=== PATIENT | male | born 1930 | race Caucasian/White ===

== ENCOUNTER 2016-11-16 15:11 | Inpatient (IN) ==
[2016-11-16] MEDS ORDERED: ASPIRIN PO STA (15:19)
[2016-11-16] MEDS ORDERED: LOPRESSOR IV ONE (15:21)
--- NOTE | 2016-11-16 15:46 | EKG Report ---
Test Performed on : 11/16/2016 3:28:05 PM Test Reason : Chest Pain Blood Pressure : / mmHG Vent. Rate : 113 BPM Atrial Rate : 087 BPM P-R Int : 000 ms QRS Dur : 100 ms QT Int : 342 ms P-R-T Axes : 000 235 115 degrees QTc Int : 469 ms Atrial fibrillation. with rapid ventricular response. Right superior axis deviation Pulmonary disease pattern Nonspecific ST abnormality Abnormal ECG No previous ECGs available Unconfirmed Result
[2016-11-16 15:47] LABS: BASO% 0.1 % (0.0-0.8); HEMATOCRIT 43.9 % (42.0-52.0); HEMOGLOBIN 13.9 g/dL (14.0-18.0); IMM GRAN# 0.08 X1000 (0.0-0.04); IMM GRAN% 0.5 % (0.0-0.5); LYMPH# 1.66 X1000 (1.2-3.4); LYMPH% 11.4 % (20.5-51.1); MANUAL DIFF NEEDED? NO; MCH 27.1 PG (27-31); MCHC 31.7 g/dL (33-37); MCV 85.7 FL (81-99); MONO# 1.87 X1000 (0.11-0.59); MONO% 12.8 % (1.7-9.3); MPV 11.5 FL (7.4-10.4); NEUT% 75.2 % (42.2-75.2); PLT 106 X1000 (130-400); RBC 5.12 XMIL (4.7-6.1)
[2016-11-16 15:50] LABS: INR 1.44; PROTIME 15.5 Seconds (9.2-11.7)
[2016-11-16 15:51] LABS: PTT 48.8 Seconds (22.0-36.0)
--- NOTE | 2016-11-16 15:54 | ED EKG INTERP ---
This chart was entered by Kyle Acevedo Scribe, acting as scribe for Katy Kapadia MD. EKG Interpretation - EKG Time of EKG reading by physician:: 15:39 EKG Read and Signed by:: Katy Kapadia EKG Interpretation (*Must complete 3 of following elements*): Abnormal Rate: 113 Rhythm: a fib with rapid ventricular response [place]: right Comments: pulmonary disease pattern, non specific ST abnormality This chart was documented by the indicated scribe, (Kyle Acevedo Scribe) and accurately reflects the services I performed and decisions made by me, Katy Kapadia MD, as attested by the provider's signature.
[2016-11-16 16:02] LABS: ALBUMIN 4.5 g/dL (3.5-5.0); CALCIUM 9.4 mg/dL (8.8-10.2); MAGNESIUM 2.2 mg/dL (1.5-2.7); TOTAL BILIRUBIN 2.54 mg/dL (0.20-1.00)
--- NOTE | 2016-11-16 16:10 | Diag Imaging Result Doc PS360 ---
EXAM: CHEST-PORTABLE - 11/16/2016 HISTORY: sob/cp TECHNIQUE: Portable chest 4:05 PM COMPARISON: 06/07/2015 FINDINGS: Heart size is within normal limits. There are apparent emphysematous changes of the upper lobes, is prominent on the right. There is infiltrate with some atelectasis at the right base. There is mild prominence of central markings on the left. There is no substantial pleural effusion or pneumothorax identified. IMPRESSION: Some emphysematous changes. Findings which may relate to right basilar pneumonia and/or mild pulmonary edema. Electronically signed by Andre Carreno 11/16/2016 4:08 PM
[2016-11-16] MEDS ORDERED: LASIX IV ONE ×2 (17:23→19:12)
[2016-11-16] MEDS ORDERED: NS 1,000 ML IV ONE (17:26)
[2016-11-16] MEDS ORDERED: TORADOL IV PRN (17:26)
[2016-11-16] MEDS ORDERED: ZOFRAN IV PRN (17:28)
[2016-11-16] MEDS ORDERED: TYLENOL PO PRN (17:28)
[2016-11-16] MEDS: SOLU-MEDROL IV SCH (19:57)
[2016-11-16] MEDS: KLOR-CON PO SCH ×2 (19:57→20:08)
[2016-11-16] MEDS: ROCEPHIN 1 GM/NS 1 GM/50 ML IVPB IV SCH (19:57)
[2016-11-16] MEDS: PROTONIX IV SCH (19:57)
[2016-11-16] MEDS: NS 1,000 ML IV SCH (19:58)
[2016-11-16] MEDS ORDERED: MORPHINE IV PRN (20:35)
--- NOTE | 2016-11-16 21:02 | HISTORY AND PHYSICAL ---
CHIEF COMPLAINT: Shortness of breath. HISTORY OF PRESENT ILLNESS: Mr. Meneses is an 86-year-old white gentleman, patient of Dr. Guzman, came to the ER because of shortness of breath. The patient is a vague and poor historian. History gotten from patient and his daughter. According to patient, he was not doing well since this morning. The patient had increasing cough, chest congestion, shortness of breath. The patient claims he was feeling weak. His legs were feeling rubbery. He did have some chills, questionable fever. The patient does have underlying COPD, atrial fibrillation, on medication. Daughter called the ambulance. The patient was brought to the emergency room. Evaluated by ER physician. Patient found to be in atrial fibrillation with rapid ventricular response. Also found to have uncompensated congestive heart failure. The patient received IV Lasix with partial improvement and they decided to admit the patient for further care. The patient did have increasing cough and chest congestion. When I evaluated the patient he was feeling feverish. The patient was getting weak. The patient denied any headache. He did have a runny nose, stuffy nose. No sore throat. Denied any hemoptysis. No pleuritic-type of chest pain. Denied abdominal pain, nausea, vomiting. No diarrhea, blood or mucus in the stool. Does have polyuria and polydipsia. No dysuria or hematuria. Minimal leg swelling. The patient does have arthritic pain in both knees. The patient claims he does have much more problem in the right leg compared to the left. No further history available at this time. The patient was feeling weak, tired, and no energy. No further history available at this time. ALLERGIES: No known drug allergy. PAST MEDICAL HISTORY: Significant for COPD, atrial fibrillation, congestive heart failure, osteoarthritis. Patient had bilateral knee replacement done. History of BPH and TURP. Patient had nephrectomy done, melanoma on the left arm and excision done in the past. The patient had amputation of the great toe. History of gout, hearing impairment, osteoarthritis, atrial fibrillation, superficial bladder cancer, hypertension, hiatal hernia. SOCIAL HISTORY: Patient is single. Lives in [place]. Nonsmoker. Denied alcohol or substance abuse. Not working currently. Needs minimal assistance in activities of daily living. FAMILY HISTORY: Significant for, his of lung cancer. REVIEW OF SYSTEMS: As per HPI. PHYSICAL EXAMINATION: GENERAL: Elderly white gentleman, in mild distress. VITAL SIGNS: Blood pressure 133/70, pulse 117 and irregularly irregular, temperature 99.2 degrees, respiration 18. SKIN: Senile turgor. No rash or petechiae. HEENT: Head atraumatic, normocephalic. [place] conjunctivae. Anicteric sclerae. Extraocular muscle movement normal. Fundus cannot be penetrated. Good oral hygiene. No tonsillopharyngeal congestion or exudate. Ears and nose benign. NECK: Supple. No JVD, thyromegaly, or lymphadenopathy. CHEST: Bilateral good air entry present. Bibasilar crepitation. Occasional wheezing. CARDIOVASCULAR: S1 and S2. Irregularly irregular. There is 2/6 systolic murmur at the apex. No gallop or thrill. ABDOMEN: Soft, globular. Bowel sounds present. No organomegaly or mass. EXTREMITIES: No cyanosis, clubbing. No acute DVT. Scar of previous surgery well healed on both knees. FULL TIME STAFF INTERPRETER: Alert, awake. Answering questions fairly well. Hard of hearing. No acute vascular compromise. LABORATORY DATA: Revealed WBC count 14.56, hemoglobin 13.9, hematocrit 43.9, platelet count 106,000. PT/INR 1.44, PTT 48.8. Patient does have left shift. Electrolytes: BUN 23, creatinine 1.6. ProBNP was 2,979. Total bilirubin was 2.54. CONSIDERATION: Patient admitted with chest congestion, cough, wheezing, shortness of breath. It is multifactorial. Chronic obstructive pulmonary disease exacerbation. The patient does have chest x-ray showing possible pneumonia. The patient also has atrial fibrillation with rapid ventricular response, mild congestive heart failure. He has other problem includes osteoarthritis, hypertension, atrial fibrillation. I entertained the possibility of chronic obstructive pulmonary disease exacerbation. The patient has only 1 kidney. I am going to stop anti-inflammatory medications. PLAN: Admit the patient. IV Lasix. GI prophylaxis. Patient is already on Xarelto. IV antibiotics. Pulmonary toilet. Small dose of steroid. Fall precaution. P.r.n. catheter. Repeat blood work in the morning. Overall plan discussed with patient and family. They are in agreement. cc: MD Isaiah Cervantes MD
--- NOTE | 2016-11-17 05:25 | EKG Report ---
Test Performed on : 11/16/2016 4:34:38 PM Test Reason : No Order in [facility] Blood Pressure : / mmHG Vent. Rate : 102 BPM Atrial Rate : 091 BPM P-R Int : 000 ms QRS Dur : 100 ms QT Int : 336 ms P-R-T Axes : 000 -46 047 degrees QTc Int : 437 ms Atrial fibrillation. with rapid ventricular response. with premature ventricular or aberrantly condu cted complexes. Left axis deviation Nonspecific ST abnormality Abnormal ECG When compared with ECG of 16-NOV-2016 16:34, (Unconfirmed) Criteria for Septal infarct are no longer present Unconfirmed Result
[2016-11-17 05:28] LABS: CALCIUM 9.4 mg/dL (8.8-10.2); MAGNESIUM 2.3 mg/dL (1.5-2.7); POTASSIUM 4.2 mmol/L (3.5-5.1); TOTAL BILIRUBIN 2.47 mg/dL (0.20-1.00); TOTAL PROTEIN 7.3 g/dL (6.3-8.3)
[2016-11-17 06:03] LABS: BASO% 0.1 % (0.0-0.8); HEMATOCRIT 41.4 % (42.0-52.0); HEMOGLOBIN 13.2 g/dL (14.0-18.0); IMM GRAN# 0.04 X1000 (0.0-0.04); IMM GRAN% 0.5 % (0.0-0.5); LYMPH# 0.37 X1000 (1.2-3.4); LYMPH% 4.2 % (20.5-51.1); MANUAL DIFF NEEDED? NO; MCHC 31.9 g/dL (33-37); MCV 84.7 FL (81-99); MONO# 0.81 X1000 (0.11-0.59); MONO% 9.1 % (1.7-9.3); MPV 12.1 FL (7.4-10.4); NEUT% 86.1 % (42.2-75.2); PLT 100 X1000 (130-400); RBC 4.89 XMIL (4.7-6.1)
[2016-11-17] MEDS: SOLU-MEDROL IV SCH ×2 (06:35→20:20)
[2016-11-17] MEDS: LINZESS PO SCH ×2 (06:40→09:05)
[2016-11-17] MEDS: VITAMIN D PO SCH (08:25)
[2016-11-17] MEDS: LOPRESSOR PO SCH (08:25)
[2016-11-17] MEDS: XARELTO PO SCH (08:28)
[2016-11-17] MEDS: DUONEB (A & A) INH PRN (15:07)
[2016-11-17] MEDS: BREO ELLIPTA 200/25 MCG INH INH SCH (15:08)
--- NOTE | 2016-11-17 18:17 | PROGRESS NOTE ---
DATE: 11/17/2016 LEVEL 3 DOCUMENTATION: Patient was admitted yesterday by Dr. Aguilar for shortness of breath. The patient was found to have atrial fibrillation and mild CHF. He also had a COPD treating for both. This morning he is doing very well. Denies of any chest pain, improved shortness of breath. No PND. No orthopnea. No swelling of feet. The rest of the review of systems none reported. PAST MEDICAL HISTORY/PAST SURGICAL HISTORY/MEDICINES: Reviewed. OBJECTIVE: Vital signs: On examination afebrile, slightly tachycardic, blood pressure is 129/79, 99 pulse oximetry on 2 L. I's and O's are negative 500 mL. General: The patient does not appear to be in respiratory distress. HEENT: Exam within normal limits. Neck: Supple. No lymphadenopathy. Chest: Bilateral air entry. No rales, no wheezing. Heart: Sounds are irregular. Belly: Soft, nontender. Good bowel sounds. Extremities: No peripheral edema. Chronic stasis changes noted in the right leg. Neuro: No obvious focal deficits. INVESTIGATIONS: CBC. White cell count 8.8, hematocrit 41, platelet count 100,000. SMA 7. Sodium 140, potassium 4.2, chloride 100, BUN 26, creatinine 1.6, glucose 154, bilirubin 2.47. AST, ALT were normal, proBNP slightly elevated 3000. EKG. Atrial fibrillation. Chest x-ray. Mild CHF with underlying COPD. ASSESSMENT AND PLAN: 1. Shortness of breath due to decompensated diastolic heart failure with atrial fibrillation. Plan is discontinue IV fluids. Lasix 40 mg IV once a day. 2. Chronic obstructive pulmonary disease and on intravenous ceftriaxone, intravenous Solu-Medrol 40 mg q.12. 3. Irritable bowel syndrome with constipation on Linzess. 4. Vitamin D deficiency on replacement therapy. 5. Atrial fibrillation. Lopressor 25 mg daily and Xarelto 15 once daily. 6. Continue on the bronchodilators. LEVEL OF DOCUMENTATION: 35 minutes. cc: Isaiah Guzman MD
[2016-11-17] MEDS: NS 1,000 ML IV SCH (20:16)
[2016-11-17] MEDS: SODIUM CHLORIDE 0.9% INJ SCH (20:20)
[2016-11-17] MEDS: KLOR-CON PO SCH (20:20)
[2016-11-17] MEDS: ROCEPHIN 1 GM/NS 1 GM/50 ML IVPB IV SCH (20:20)
[2016-11-17] MEDS: PROTONIX IV SCH (20:20)
[2016-11-18] MEDS ORDERED: MIRALAX PO ONE (08:38)
[2016-11-18] MEDS: DUONEB (A & A) INH PRN ×2 (09:13→15:21)
[2016-11-18] MEDS: BREO ELLIPTA 200/25 MCG INH INH SCH (09:16)
[2016-11-18] MEDS: LASIX PO SCH (09:22)
[2016-11-18] MEDS: VITAMIN D PO SCH (09:22)
[2016-11-18] MEDS: SOLU-MEDROL IV SCH ×2 (09:23→20:19)
[2016-11-18] MEDS: LOPRESSOR PO SCH (09:23)
[2016-11-18] MEDS: XARELTO PO SCH (09:23)
[2016-11-18] MEDS: LINZESS PO SCH (09:23)
--- NOTE | 2016-11-18 10:36 | PROGRESS NOTE ---
DATE: 11/18/2016 SUBJECTIVE: The patient complains of constipation. No chest pain, shortness of breath. Occasionally palpitations. REVIEW OF SYSTEMS: Normal. EXAMINATION: He is afebrile. Heart rate is 116. 2 L nasal cannula 96%. HEENT: Within normal limits. Neck is supple. Chest is bilateral air entry. Heart sounds are regular. Belly is soft, nontender. Good bowel sounds. No masses palpable. No peripheral edema or cyanosis. No obvious neurological deficits. ASSESSMENT AND PLAN: 1. Shortness of breath due to combination of chronic obstructive pulmonary disease exacerbation and atrial fibrillation with chronic heart failure. Plan is to discontinue IV fluids. Continue on metoprolol for rate control, Lasix, Xarelto. 2. Chronic obstructive pulmonary disease. On IV Rocephin and IV steroids. 3. Constipation. We will give him MiraLAX along with Linzess. PLAN OF CARE: Out of the bed. Repeat the blood workup on Sunday. Level of Documentation: 15 minutes. cc: Isaiah Guzman MD
[2016-11-18] MEDS: PROTONIX IV SCH (20:19)
[2016-11-18] MEDS: KLOR-CON PO SCH (20:20)
[2016-11-18] MEDS: ROCEPHIN 1 GM/NS 1 GM/50 ML IVPB IV SCH (20:20)
[2016-11-18] MEDS: SODIUM CHLORIDE 0.9% INJ SCH (20:20)
[2016-11-19] MEDS: SOLU-MEDROL IV SCH ×2 (08:27→20:25)
[2016-11-19] MEDS: LINZESS PO SCH (08:27)
[2016-11-19] MEDS: XARELTO PO SCH (08:28)
[2016-11-19] MEDS: VITAMIN D PO SCH (08:28)
[2016-11-19] MEDS: LASIX PO SCH (08:28)
[2016-11-19] MEDS: LOPRESSOR PO SCH (08:28)
[2016-11-19] MEDS: DUONEB (A & A) INH PRN ×2 (09:52→15:30)
[2016-11-19] MEDS: BREO ELLIPTA 200/25 MCG INH INH SCH (09:52)
--- NOTE | 2016-11-19 12:03 | PROGRESS NOTE ---
DATE: 11/19/[address] Guzman. SUBJECTIVE: Patient is sitting up in a chair. He remains on his oxygen by nasal cannula at 2 L. He is feeling better. OBJECTIVE: CV: Irregularly irregular. Rate controlled. Lungs: CTA. Abdomen: Nontender. Extremities: There is 1+ lower extremity edema. Vital signs: He is afebrile, pulse 92-117, respirations 18, blood pressure 138/75, O2 saturation 95% on 2 L, 93% on room air. Had a bowel movement yesterday. He has eaten about 75% of his meals this morning. ASSESSMENT: 1. Chronic obstructive pulmonary disease exacerbation. 2. Mild congestive heart failure. 3. Chronic atrial fibrillation. 4. Constipation, improved. PLAN: Continue p.r.n. nebulizer treatments. Continue, oxygen, Lasix, steroids, and IV antibiotics in the form of Rocephin. Continue MiraLAX and Linzess. Continue Breo. Will follow. cc: MD Isaiah Alvarado MD
[2016-11-19] MEDS: SODIUM CHLORIDE 0.9% INJ SCH (20:23)
[2016-11-19] MEDS: PROTONIX IV SCH (20:23)
[2016-11-19] MEDS: ROCEPHIN 1 GM/NS 1 GM/50 ML IVPB IV SCH (20:23)
[2016-11-19] MEDS: KLOR-CON PO SCH (20:27)
[2016-11-20 07:46] VITALS: BP 146/86
[2016-11-20] MEDS: BREO ELLIPTA 200/25 MCG INH INH SCH (08:26)
[2016-11-20] MEDS: SOLU-MEDROL IV SCH (09:36)
[2016-11-20] MEDS: LOPRESSOR PO SCH (09:36)
[2016-11-20] MEDS: LASIX PO SCH (09:36)
[2016-11-20] MEDS: XARELTO PO SCH (09:36)
[2016-11-20] MEDS: LINZESS PO SCH (09:36)
[2016-11-20] MEDS: VITAMIN D PO SCH (09:37)
--- NOTE | 2016-11-22 07:52 | DISCHARGE SUMMARY ---
ADMISSION DATE: 11/16/2016 DISCHARGE DATE: 11/20/2016 DISCHARGING DIAGNOSIS: Shortness of breath due to combination of mild decompensated diastolic heart failure with atrial fibrillation and COPD exacerbation. SECONDARY DIAGNOSES: 1. Altered mental status due to delirium. 2. Chronic atrial fibrillation on blood thinners. 3. BPH. 4. Superficial bladder cancer. 5. Hypertension. 6. Hiatal hernia with dilatation of Schatzki's ring. 7. Gout. 8. Deafness. 9. Osteoarthritis of both knees. 10. 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 11. Chronic kidney failure status post left nephrectomy with creatinine 1.6. Brief History Please see the H and P that was done by Dr. Aguilar. In brief, this 85-year-old white gentleman was brought into the hospital with shortness of breath by ambulance. Patient was seen by Dr. Cobian in the ER. Patient was found to have rapid atrial fibrillation with mild decompensated heart failure as well as bronchitis. HOSPITAL COURSE: He was admitted to the [facility]. IV fluids was stopped. The patient was given IV Lasix, bronchodilators, IV steroids, and IV antibiotics. Follow up symptoms were much improved. He is not taking oxygen. He is slightly confused in the beginning due to delirium. He complains of constipation requiring MiraLAX and Linzess. Rest of the hospital course was uneventful. LABORATORY: CBC: White cell count 8.8, hematocrit 42, platelets 100,000. SMA 7. Sodium 140, potassium 4.2, chloride 100, BUN 26, creatinine 1.6, glucose 154, total bilirubin 2.4. LFTs were normal. Chest x-ray mild emphysema with mild pulmonary edema. DISCHARGE INSTRUCTIONS: Potassium 20 mEq daily, Lasix 40 daily, Prilosec 20 daily, vitamin D3 800 units daily. Linzess 145 mcg daily, metoprolol 25 daily, Xarelto 15 daily. Brio 1 inhalation daily. Levaquin 500 daily. Medrol Dosepak, nebulizers as directed. Follow up in my office in 10 days. cc: Isaiah Guzman MD MTDD
--- NOTE | 2016-11-27 17:50 | PROVIDER DOCUMENTATION ---
This chart was entered by Kyle Acevedo Scribe, acting as scribe for Katy Kapadia MD. HPI-General Adult - General Chief Complaint: Dizziness Stated Complaint: WEAK/A-FIB Time Seen by Provider: 11/16/16 15:18 Source: patient, family Allergies/Adverse Reactions: Patient Allergies Allergy/AdvReac Type Severity Reaction Status Date / Time No Known Allergies Allergy Verified 11/16/16 16:11 Home Medications: Home Medication List Medication Instructions Recorded Confirmed Last Taken Type Furosemide [Lasix] 40 mg PO DAILY 06/12/14 11/16/16 11/16/16 History Potassium Chloride [Klor-Con M20] 20 meq PO HS 06/12/14 11/16/16 11/16/16 History Omeprazole [Prilosec] 20 mg PO DAILY@0700 12/07/14 11/16/16 11/16/16 History Cholecalciferol (Vitamin D3) 800 unit PO DAILY #90 tablet 06/09/15 11/16/16 Rx [Vitamin D3] Linaclotide [Linzess] 145 mcg PO DAILY #90 capsule 06/09/15 11/16/16 11/16/16 Rx Metoprolol [Lopressor] 25 mg PO DAILY 11/16/16 11/16/16 11/16/16 History Rivaroxaban [Xarelto] 15 mg PO QAM 11/16/16 11/16/16 11/16/16 History Albuterol 2.5MG/Ipratrop 0.5MG 3 ml INH Q6H PRN PRN #90 neb 11/20/16 Unknown Rx [Duoneb (A & A)] Fluticasone/Vilant 200/25 INH 1 puff INH RTDAILY #1 inhaler 11/20/16 Unknown Rx [Breo Ellipta 200/25 Mcg INH] Levofloxacin [Levaquin] 500 mg PO DAILY #7 tablet 11/20/16 Unknown Rx Methylprednisolone [Medrol Dosepak] 4 mg PO DIRECTED #1 package 11/20/16 Unknown Rx - History of Present Illness -Gen Adult Nature of Presenting Problems: 86 yo M presents to the ER with complaint of weakness and just not feeling right since this AM. PT wanted to wait to see if he got better before coming to the ER. PT denies CP, N/V/D, fever, and cough. PT has a hx of a fib. PT also complains of SOB. Severity: reports: mild Onset/Duration: reports: this morning Timing: reports: still present Associated Symptoms: reports: shortness of breath, weakness Review of Systems - Adult - REVIEW OF SYSTEMS - ADULT Constitutional: denies: chills, fever Cardiovascular: denies: chest pain, palpitations Respiratory: reports: shortness of breath. denies: cough Gastrointestinal: denies: abdominal pain, nausea, vomiting Musculoskeletal: denies: back pain, neck pain Neurological: reports: see HPI, other (weakness) All Other Systems: Reviewed and Negative Past History - Adult - PAST MEDICAL HISTORY-ADULT Review of Records: reports: Old Records Reviewed, Nursing Assessment Review, Medications Reviewed, Social history reviewed & non-contributory. Major Childhood Illnesses: reports: denies history Cardiovascular: reports: HTN Respiratory: reports: denies history Gastrointestinal: reports: denies history Obstetrical/Gynecological: reports: denies history Genitourinary: reports: retention, other (bladder cancer) Musculoskeletal: reports: denies history Neurological: reports: denies history Endocrine/Immune: reports: denies history Other Conditions: reports: denies history - PRIOR SURGERIES/PROCEDURES Surgical/Procedure History: reports: joint replacement, other (TURP) - IMMUNIZATION STATUS Childhood Immunizations: See Nurse Assessment Flu Vaccine: See Nurse Assessment - FAMILY HISTORY Family History: reviewed, not pertinent Physical Exam-General - PHYSICAL EXAM-ADULT Initial Vital Signs Reviewed: Yes - CONSTITUTIONAL General Appearance: appears well, no apparent distress - RESPIRATORY Respiratory: chest non-tender, rales - CARDIOVASCULAR Cardiovascular: other (pedal edema) - GASTROINTESTINAL (ABDOMEN) Abdominal Exam: normal bowel sounds, non tender, soft - MUSCULOSKELETAL Extremity: normal range of motion, non-tender, normal gait - SKIN Integumentary: normal color, normal turgor, other (bruising on extremities) Progress - PLAN OF CARE/RESULTS Progress/Plan/Lab Results: Vital Signs - 8 hr 11/16/16 15:16 Temperature 99.1 F Pulse Rate 120 H Respiratory Rate 22 Blood Pressure 107/66 O2 Sat by Pulse Oximetry 93 L Laboratory Results - last 24 hr 11/16/16 15:27 WBC 14.56 H RBC 5.12 Hgb 13.9 L Hct 43.9 MCV 85.7 MCH 27.1 MCHC 31.7 L RDW Std Deviation 14.9 H Plt Count 106 L MPV 11.5 H Immature Gran % (Auto) 0.5 Neut % (Auto) 75.2 Lymph % (Auto) 11.4 L [place] % (Auto) 12.8 H Eos % (Auto) 0.0 Baso % (Auto) 0.1 Immature Gran # (Auto) 0.08 H Neut # (Auto) 10.94 H Lymph # (Auto) 1.66 [place] # (Auto) 1.87 H Eos # (Auto) 0.00 Baso # (Auto) 0.01 Orders Category Date Time Status Cardiac Monitoring DIRECTED Care 11/16/16 15:20 Active Oxygen Therapy- ED Nursing DIRECTED Care 11/16/16 15:20 Active Saline Loc NOW Care 11/16/16 15:20 Active CHEST-PORTABLE [RAD] Stat Exams 11/16/16 15:21 Ordered CBC WITH ELECTRONIC DIFF [HEME] Stat Lab 11/16/16 15:27 Completed CK PROFILE [SP CHEM] Stat Lab 11/16/16 15:27 Received COMPREHENSIVE METABOLIC PANEL [CHEM] Stat Lab 11/16/16 15:27 Received MAGNESIUM [CHEM] Stat Lab 11/16/16 15:27 Received PRO B-NATRIURETIC PEPTIDE Stat Lab 11/16/16 15:27 Received PROTIME WITH INR [COAG] Stat Lab 11/16/16 15:27 Received PTT [COAG] Stat Lab 11/16/16 15:27 Received TROPONIN T Stat Lab 11/16/16 15:27 Received Aspirin Med 11/16/16 15:19 Discontinued 325 mg PO STAT STA Metoprolol [Lopressor] Med 11/16/16 15:21 Discontinued 2.5 mg IV NOW ONE EKG [EKG] Stat Ther 11/16/16 15:20 Draft Result Diagrams: 11/17/16 04:44 11/17/16 04:44 - EKG 1 Time of EKG reading by physician:: 16:52 EKG Read and Signed by:: Katy Kapadia EKG Interpretation (*Must complete 3 of following elements*): Abnormal Rate: 102 Rhythm: a fib with rapid ventricular response with premature complexes [place]: left HI Interval: normal ST Wave: non-specific ST changes Comments: abnormal - XRAY 1 XRAY Study: Chest Impression: Normal, Abnormal XRAY Interpretation: some emphysematous changes, findings which may realte to R pneumonia Departure - Departure Date of Disposition Decision: 11/20/16 Time of Disposition Decision: 09:30 DIAGNOSIS: A-fib Disposition: ADMITTED INPATIENT 09 Certified Medical Emergency: Urgent Condition: Good - Critical Care Note This patient required my direct & personal management of CC.: No This chart was documented by the indicated scribe, (Kyle Acevedo, [place]) and accurately reflects the services I performed and decisions made by me, Katy Kapadia MD, as attested by the provider's signature.
== END 2016-11-20 10:29 | disposition home health service (06) ==
LOC: ED 15:11 → 3S 17:36 → 3N 11-19 17:19
PROVIDERS: ADMIT Internal Medicine; ATTEND Internal Medicine

== ENCOUNTER 2019-03-18 00:28 | Inpatient (IN) ==
--- NOTE | 2019-03-18 06:13 | PROVIDER DOCUMENTATION ---
This chart was entered by Bijan Mcneill Scribe, acting as scribe for Yuri Mendez MD. HPI-General Adult - General Source: patient, EMS - History of Present Illness -Gen Adult Nature of Presenting Problems: Pt is a 89 yom who presents to the ED with a CC of fall injury. Pt reports he was walking at home and states he tripped over the cord of a heater. Pt reports he fell forward and hit his head. Pt denies any loss of consciousness. Pt complains of left elbow pain. Pt reports being on a blood thinner. Pt has multiple contusions but only complains of pain to his left elbow. Location of Pain/Injury: reports: head, upper extremity (Left elbow) Quality of Pain: reports: aching Severity: reports: mild Onset/Duration: reports: 1-3 hours ago Timing: reports: still present Similar Symptoms Previously?: No Recently seen or treated by another doctor?: No <Yuri Mendez - Last Filed: 03/18/19 06:13> <Daniel Huitron - Last Filed: 03/18/19 07:37> - General Chief Complaint: Fall Stated Complaint: FALL Time Seen by Provider: 03/18/19 01:09 Allergies/Adverse Reactions: Patient Allergies Allergy/AdvReac Type Severity Reaction Status Date / Time No Known Allergies Allergy Verified 11/16/16 16:11 Home Medications: Home Medication List Medication Instructions Recorded Confirmed Last Taken Type Furosemide [Lasix] 40 mg PO DAILY 06/12/14 03/18/19 04/28/17 History Potassium Chloride [Klor-Con M20] 20 meq PO HS 06/12/14 03/18/19 04/28/17 History Omeprazole [Prilosec] 20 mg PO DAILY@0700 12/07/14 03/18/19 04/28/17 History Cholecalciferol (Vitamin D3) 800 unit PO DAILY #90 tablet 06/09/15 03/18/19 04/28/17 Rx [Vitamin D3] Metoprolol [Lopressor] 25 mg PO DAILY 11/16/16 03/18/19 04/28/17 History Rivaroxaban [Xarelto] 10 mg PO QAM 11/16/16 03/18/19 04/28/17 History Albuterol 2.5MG/Ipratrop 0.5MG 3 ml INH Q6H PRN PRN #90 neb 11/20/16 03/18/19 04/28/17 Rx [Duoneb (A & A)] Allopurinol [Zyloprim] 1 tab PO DAILY 04/28/17 03/18/19 04/28/17 History Cyclobenzaprine [Flexeril] 1 tab PO DAILY 04/28/17 03/18/19 04/28/17 History Gabapentin 1 tab PO BID 04/28/17 03/18/19 04/28/17 History Linaclotide [Linzess] 72 mcg PO DAILY 04/28/17 03/18/19 04/28/17 History Zolpidem Tartrate 1 tab PO DAILY 04/28/17 03/18/19 04/28/17 History Donepezil [Aricept] 10 mg PO DAILY 03/18/19 03/18/19 Unknown History Tramadol HCl/Acetaminophen 1 tab PO PRN PRN 03/18/19 03/18/19 Unknown History [Tramadol-Acetaminophn 37.5-325] Review of Systems - Adult - REVIEW OF SYSTEMS - ADULT Constitutional: reports: see HPI Eyes: reports: no symptoms reported Ears, Nose, Mouth & Throat: reports: no symptoms reported Cardiovascular: reports: no symptoms reported Respiratory: reports: no symptoms reported Gastrointestinal: reports: no symptoms reported Genitourinary: reports: no symptoms reported Musculoskeletal: reports: see HPI, joint pain, muscle aches, muscle weakness Integumentary: reports: no symptoms reported Neurological: reports: no symptoms reported Psychiatric: reports: no symptoms reported Endocrine: reports: no symptoms reported Hematologic/Lymphatic: reports: no symptoms reported Allergic/Immunologic: reports: no symptoms reported All Other Systems: Reviewed and Negative <Yuri Mendez - Last Filed: 03/18/19 06:13> Past History - Adult - PAST MEDICAL HISTORY-ADULT Review of Records: reports: Old Records Reviewed, Nursing Assessment Review, Medications Reviewed, Social history reviewed & non-contributory. Major Childhood Illnesses: reports: denies history Cardiovascular: reports: HTN Respiratory: reports: denies history Gastrointestinal: reports: denies history Obstetrical/Gynecological: reports: denies history Genitourinary: reports: retention, other (bladder cancer) Musculoskeletal: reports: denies history Neurological: reports: denies history Endocrine/Immune: reports: denies history Other Conditions: reports: denies history - PRIOR SURGERIES/PROCEDURES Surgical/Procedure History: reports: joint replacement, other (TURP) - IMMUNIZATION STATUS Childhood Immunizations: See Nurse Assessment Flu Vaccine: See Nurse Assessment - FAMILY HISTORY Family History: reviewed, not pertinent - SOCIAL HISTORY Smoking: denies, non-smoker Substance Use: none/never, denies Alcohol Use Frequency: never <Yuri Mendez - Last Filed: 03/18/19 06:13> Physical Exam-General - PHYSICAL EXAM-ADULT Initial Vital Signs Reviewed: Yes - CONSTITUTIONAL General Appearance: alert, mild distress - EYES Eyes: PERRL/EOMI - HEAD, EARS, NOSE, MOUTH & THROAT HENMT: moist mucous membranes - NECK Neck: non-tender, full range of motion - RESPIRATORY Respiratory: chest non-tender, lungs clear, normal breath sounds, no pleuratic chest pain, no respiratory distress, no accessory muscle use - CARDIOVASCULAR Cardiovascular: normal peripheral pulses, regular rate, rhythm - GASTROINTESTINAL (ABDOMEN) Abdominal Exam: soft - MUSCULOSKELETAL Extremity: tenderness - SKIN Integumentary: erythema, swelling, tenderness - NEUROLOGIC Neurologic: grossly normal - PSYCHIATRIC Psych/Mental Status: normal mood/affect, normal thought content, normal thought process, oriented x 3 <Yuri Mendez - Last Filed: 03/18/19 06:13> Progress - PLAN OF CARE/RESULTS Progress/Plan/Lab Results: Vital Signs - 8 hr 03/18/19 00:30 03/18/19 07:15 Temperature 97.9 F 98 F Pulse Rate 102 H 105 H Respiratory Rate 20 20 Blood Pressure 153/96 156/89 O2 Sat by Pulse Oximetry 93 L 96 Orders Category Date Time Status CT HEAD/C-SPINE W/O CONTRAST [CT] Stat Exams 03/18/19 01:[address] MAXILLOFACIAL(SINUS) W/O CO [CT] Stat Exams 03/18/19 01:23 Completed ELBOW COMPLETE LEFT [RAD] Stat Exams 03/18/19 01:22 Completed PELVIS [RAD] Stat Exams 03/18/19 01:23 Completed RIBS UNILAT W/PA CHEST LEFT [RAD] Stat Exams 03/18/19 01:22 Completed - CONSULTS/PCP/HOSPITALIST Notification #1 *Consult/PCP/Hospitalist*: Dr Guzman Time Discussed: 07:34 Consult Disposition: Will see in ED, Admit #2 Consult: Dr Pastor Reason/Comments: Dr Mendez discussed with Dr Pastor who asked that hospitalist admit. Consult Disposition: Admit <Daniel Huitron - Last Filed: 03/18/19 07:37> Departure - Departure Date of Disposition Decision: 03/18/19 Certified Medical Emergency: Emergent - Critical Care Note This patient required my direct & personal management of CC.: No <Yuri Mendez - Last Filed: 03/18/19 06:13> - Departure Time of Disposition Decision: 07:34 Certified Medical Emergency: Emergent - Critical Care Note This patient required my direct & personal management of CC.: No <Daniel Huitron - Last Filed: 03/18/19 07:37> - Departure DIAGNOSIS: Humerus distal fracture, Pubic ramus fracture, Fall Disposition: ADMITTED INPATIENT 09 Condition: Fair Additional Instructions: ED Follow Up Instructions: You have been treated by a care provider in the Emergency Department. These instructions are being provided to you so you can have an understanding of how to care for yourself upon discharge. Upon discharge from the Emergency Department, you are responsible for making arrangements for follow-up care by a physician of your choice. Take all prescribed medications as directed. Return to the Emergency Department immediately for any new or worsening symptoms. You may call the Physician Referral phone number at [phone] to obtain a list of Physicians who are taking new patients. Referrals and Follow-Ups: Tanner Guzman MD [Primary Care Provider] - Attestation - Physician/ [place] Attestation Patient care was provided by Advanced Practice Provider:: No The physician spent face to face time with patient:: Yes Advanced Practice Provider documentation review:: Supervising physician onsite and consulted in the evaluation and care of this patient. The physician did have a face to face encounter with the patient. <Yuri Mendez - Last Filed: 03/18/19 06:13> This chart was documented by the indicated scribe, (Bijan Mcneill Scribe) and accurately reflects the services I performed and decisions made by me, Yuri Mendez MD, as attested by the provider's signature.
--- NOTE | 2019-03-18 06:44 | Diag Imaging Result Doc PS360 ---
CT HEAD/C-SPINE W/O CONTRAST, CT MAXILLOFACIAL(SINUS) W/O CO - 03/18/2019 INDICATION: head injury/pain COMPARISON: 09/16/2018 FINDINGS: Head CT: Stable advanced periventricular white matter chronic microvascular ischemia. 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 No intracranial mass or hemorrhage. The calvarium is intact. Cervical spine: Stable grade 1 degenerative anterolisthesis of C7 on T1. Otherwise alignment is anatomic. Stable advanced multilevel degenerative disc disease diffusely. Stable severe diffuse facet degeneration. No fracture or acute subluxation. Facial bones: There is significant left periorbital soft tissue swelling. No facial bone fractures. Intraorbital contents are normal. Small amount of fluid in the left frontal sinus. Otherwise sinuses are clear. Mastoids and middle ears are grossly clear. IMPRESSION: Left periorbital soft tissue contusion. Otherwise no acute disease or change from prior. This exam was performed using automated exposure control, adjustment of mA or kV according to patient size, and/or use of iterative reconstruction technique Electronically signed by Barrie Magana 03/18/2019 6:42 AM
--- NOTE | 2019-03-18 07:20 | Diag Imaging Result Doc PS360 ---
EXAM: RIBS UNILAT W/PA CHEST LEFT 03/18/2019 HISTORY: fall TECHNIQUE: AP upright sitting chest with left rib series 4 views COMMENT: There is no evidence of pneumothorax. The inspiration is generally less optimal than on 04/28/2017. There is no definite evidence of pleural fluid collection. There is some apparent fibrosis producing a platelike opacity in the right base which was also present previously. The ribs appear to be intact. IMPRESSION: Stable chest. Electronically signed by Azael Lopez 03/18/2019 7:17 AM
--- NOTE | 2019-03-18 07:22 | Diag Imaging Result Doc PS360 ---
EXAM: PELVIS 03/18/2019 HISTORY: fall TECHNIQUE: AP pelvis at 0213 COMMENT: The joint spaces are slightly narrowed particularly the left side. There is no definite evidence of fracture or dislocation. There is some formed stool in the rectum and apparent diverticulosis of the sigmoid colon. IMPRESSION: No evidence of acute bony disease. Electronically signed by Azael Lopez 03/18/2019 7:20 AM
--- NOTE | 2019-03-18 07:24 | Diag Imaging Result Doc PS360 ---
EXAM: ELBOW COMPLETE LEFT 03/18/2019 HISTORY: fall TECHNIQUE: Left elbow three views COMMENT: There is a fracture transversely across the distal humerus at the level of the epicondyles the distal fragment is displaced slightly anteriorly with respect to the proximal fragment. There is no evidence of dislocation. IMPRESSION: Fracture of the distal humerus. Electronically signed by Azael Lopez 03/18/2019 7:21 AM
[2019-03-18 08:27] LABS: HEMOGLOBIN 12.8 g/dL (14.0-18.0); IMM GRAN# 0.12 X1000 (0.0-0.04); IMM GRAN% 1.9 % (0.0-0.5); LYMPH# 0.61 X1000 (1.2-3.4); LYMPH% 9.4 % (20.5-51.1); MCHC 30.5 g/dL (33-37); MONO# 1.48 X1000 (0.11-0.59); MONO% 22.9 % (1.7-9.3); MPV 11.2 FL (7.4-10.4); NEUT# 4.26 X1000 (1.4-6.5); NEUT% 65.8 % (42.2-75.2); PLT 130 X1000 (130-400); RBC 5.12 XMIL (4.7-6.1); RDW 16.3 % (11.5-14.5); WBC 6.47 X1000 (4.8-10.8)
[2019-03-18 08:29] LABS: INR 1.45; PROTIME 17.9 Seconds (11.0-16.0)
[2019-03-18 08:37] LABS: PTT 45.2 Seconds (22.3-41.8)
[2019-03-18 08:59] LABS: AGAP 11; ALB/GLOB RATIO 1.5; ALBUMIN 4.1 g/dL (3.5-5.0); ALKALINE PHOSPHATASE 107 U/L (32-122); BUN 17 mg/dL (8-22); CHLORIDE 105 mmol/L (98-107); COSMO 291; CREATININE 1.5 mg/dL (0.7-1.2); ESTIMATED GFR 44; GLUCOSE 107 mg/dL (70-104); GOT 11 U/L (10-34); GPT < 5 U/L (10-44); POTASSIUM 4.1 mmol/L (3.5-5.1); SODIUM 145 mmol/L (136-145); TCO2 29 mmol/L (25-35); TOTAL BILIRUBIN 1.38 mg/dL (0.20-1.00); TOTAL PROTEIN 6.9 g/dL (6.3-8.3)
[2019-03-18 09:15] LABS: URINE SOURCE CLEAN CATCH
[2019-03-18 09:25] LABS: BILIRUBIN URINE NEGATIVE (NEGATIVE); BLOOD URINE NEGATIVE (NEGATIVE); COLOR YELLOW; GLUCOSE URINE NEGATIVE (NEGATIVE); KETONE URINE NEGATIVE (NEGATIVE); LEUKOCYTES URINE NEGATIVE (NEGATIVE); NITRITE URINE NEGATIVE (NEGATIVE); PH URINE 6.5; PROTEIN URINE 30 mg/dL (NEGATIVE); SP GRAVITY URINE 1.022; TURBIDITY URINE CLEAR (CLEAR); UROBILINOGEN URINE 4 mg/dL (NORMAL)
[2019-03-18 09:27] LABS: UR EPITHELIAL CELLS <10 /HPF (<10); URINE BACTERIA NEGATIVE /HPF; URINE RBC <10 /HPF (<10); URINE WBC <10 /HPF (<10)
--- NOTE | 2019-03-18 09:27 | EKG Report ---
Test Performed on : 03/18/2019 09:08:19 AM Test Reason : surgical clearance Blood Pressure : / mmHG Vent. Rate : 106 BPM Atrial Rate : 074 BPM P-R Int : 000 ms QRS Dur : 096 ms QT Int : 352 ms P-R-T Axes : 000 -45 004 degrees QTc Int : 467 ms Atrial fibrillation. with rapid ventricular response. Left anterior fascicular block Nonspecific T wave abnormality Abnormal ECG When compared with ECG of 28-APR-2017 16:08, ST no longer depressed in Lateral leads Unconfirmed Result
[2019-03-18] MEDS: DILAUDID IV PRN ×2 (13:11→22:04)
[2019-03-18] MEDS: NEURONTIN PO SCH (21:49)
[2019-03-18] MEDS: KLOR-CON PO SCH (21:49)
[2019-03-18] MEDS: NS 1,000 ML IV SCH (21:50)
--- NOTE | 2019-03-18 21:56 | HISTORY AND PHYSICAL ---
CHIEF COMPLAINT: History of fall in the middle of the night, tripped over the cord of a heater, fell forward, hit the head and the left elbow. HISTORY OF PRESENT ILLNESS: The patient was seen in the emergency room. Obviously, the patient has a supracondylar fracture of the left humerus with mild displacement. CT head was negative. Apparently patient was seen by Dr. Pastor, wants to be admitted in the hospital,and he had iced up and left elbow sling noted. As a result, hospital admission was warranted. PAST MEDICAL HISTORY: BPH, superficial bladder cancer, chronic renal failure, dementia, hypertension, gout, hearing loss, osteoarthritis of both knees, PAF, malignant melanoma, left great toe status post amputation. PAST SURGICAL HISTORY: TURP, left nephrectomy, bilateral knee arthroplasty, melanoma of the left arm excision, left great toe amputation. MEDICATIONS: Potassium 20 mEq daily, Lasix 40 daily, Prilosec 20 daily, vitamin D3 800 units daily, metoprolol 25 daily, Xarelto 10 in the morning, Albuterol/Atrovent nebulizers q.6 hours as needed, Zyloprim 300 daily, Flexeril 10 mg daily, gabapentin 300 p.o. b.i.d., Ambien 10 mg daily, Linzess 72 mcg daily, Ultracet 1 tablet q.6 as needed, Aricept 10 mg daily. ALLERGIES: Not known. SOCIAL HISTORY: He is single. His a few years ago with lung cancer. He has a daughter who lives in [place]. No smoking, no alcohol. FAMILY HISTORY: Father in World War I. Mom at the age of 99 of old age. HEALTH MAINTENANCE: Flu vaccine March 2018, tetanus April 2016, last physical January 2019, colonoscopy 2014. REVIEW OF SYSTEMS: HEENT: Had a head injury, some confusion and left eyebrow had some bruising noted. No headache. Neck: No neck pain. Cardiopulmonary: No chest pain, shortness of breath, PND, orthopnea. Gastrointestinal: No nausea, vomiting, abdominal pain. Musculoskeletal: He had chronic osteomyelitic changes in the right leg. No focal symptoms and the left elbow pain on sling. History is not reliable. PHYSICAL EXAMINATION: VITAL SIGNS: Temperature is 98.1 degrees, pulse is 105, blood pressure is 156/91 on room air at 93%. HEENT EXAM: Large contusion noted in the left eyebrow. Pupils equal, reactive to light. NECK: Supple. No lymphadenopathy. CHEST: Bilateral air entry. HEART: Sounds are regular and tachycardic. ABDOMEN: Belly is soft, obese, nontender. NEUROLOGIC: No neurological deficits. EXTREMITIES: Left elbow has a lot of swelling noted. LABORATORY DATA: CBC: White cell count 6.4, hematocrit 42, platelets 130,000. PT 17, INR 1.45. Sodium 145, potassium 4.1, BUN 17, creatinine 1.5, glucose 107. LFTs were normal. Urinalysis is clear. DIAGNOSTIC DATA: 1. EKG: Atrial fibrillation with rapid ventricular response. 2. Maxillofacial CT: Left periorbital soft tissue contusion. No acute disease. 3. CT head and cervical spine: Left periorbital soft tissue contusion. No acute changes noted. No facial bones injury. C-spine with grade 1 DJD changes at C7 and T1. 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 4. Hip and pelvic x-rays: No evidence of acute bony disease. 5. Chest x-ray with left rib series, stable chest. 6. Elbow: Fracture of the distal humerus. ASSESSMENT AND PLAN: 1. An 89-year-old white gentleman admitted to the hospital with left elbow fracture after fall at home and icing, sling. Dr. Pastor consulted the plan of care. 2. Chronic atrial fibrillation. He is on Xarelto for stroke prevention, and we will hold the medicine because of the head injury. Continue on metoprolol. 3. Reconcile home medications. 4. Xarelto. 5. Pain control with Dilaudid. 6. Diet: Regular diet for the time being. 7. Also will give a gentle hydration and neuro checks, and we will repeat the labs in the morning, and we will follow up. cc: Isaiah Guzman MD
[2019-03-19] MEDS: DILAUDID IV PRN (04:22)
[2019-03-19] MEDS: PRILOSEC PO SCH (06:35)
[2019-03-19 06:37] LABS: HEMATOCRIT 38.6 % (42.0-52.0); HEMOGLOBIN 11.7 g/dL (14.0-18.0); IMM GRAN# 0.16 X1000 (0.0-0.04); IMM GRAN% 3.1 % (0.0-0.5); LYMPH# 0.71 X1000 (1.2-3.4); LYMPH% 13.9 % (20.5-51.1); MCH 25.2 PG (27-31); MCHC 30.3 g/dL (33-37); MONO# 1.59 X1000 (0.11-0.59); MONO% 31.2 % (1.7-9.3); MPV 11.7 FL (7.4-10.4); NEUT# 2.63 X1000 (1.4-6.5); NEUT% 51.8 % (42.2-75.2); PLT 136 X1000 (130-400); RBC 4.65 XMIL (4.7-6.1); RDW 16.4 % (11.5-14.5); WBC 5.09 X1000 (4.8-10.8)
[2019-03-19 07:06] LABS: CREATININE 1.2 mg/dL (0.7-1.2); POTASSIUM 3.7 mmol/L (3.5-5.1)
[2019-03-19 07:13] LABS: LYMPHS 16 % (21-51); MONO 15 % (1-9); SEGS 67 % (42-75)
[2019-03-19] MEDS: NS 1,000 ML IV SCH (08:24)
[2019-03-19] MEDS: LOPRESSOR PO SCH (08:25)
[2019-03-19] MEDS: NEURONTIN PO SCH ×2 (08:25→21:05)
[2019-03-19] MEDS: ZYLOPRIM PO SCH (08:25)
[2019-03-19] MEDS: LASIX PO SCH (08:25)
[2019-03-19] MEDS: ARICEPT PO SCH (08:25)
[2019-03-19] MEDS: VITAMIN D PO SCH (08:26)
[2019-03-19] MEDS: LINZESS PO SCH (08:26)
[2019-03-19] MEDS: ULTRACET 37.5MG/325MG PO PRN (12:08)
[2019-03-19] MEDS: OXY IR PO PRN ×2 (17:27→21:11)
--- NOTE | 2019-03-19 20:50 | ORTHOPAEDICS CONSULTATION ---
DATE: 03/19/2019 SUBJECTIVE: Mr. Pimentel is a pleasant 89-year-old male with multiple medical problems who is 1 day status post fall at home when he tripped over a cord of a heater and fell to the ground. He developed immediate pain in his left elbow. He denies any loss of consciousness. He presented to the emergency room, and x-rays revealed a transverse fracture of the left distal humerus with very mild displacement. He was admitted to the hospital, and orthopedic consultation was requested. He does have significant medical problems. He usually uses both a walker and a cane at home, and his daughter states that he is not very mobile at home. MEDICATIONS: Potassium 20 mEq daily, Lasix 40 mg daily, Prilosec 20 mg daily, vitamin D 800 international units daily, metoprolol 25 mg daily, Xarelto 10 mg 3 times a week on Mondays, Wednesdays, and Fridays, TARA nebs q.6 hours p.r.n., Zyloprim 300 mg daily, Flexeril 10 mg daily, gabapentin 300 mg p.o. b.i.d., Ambien 10 mg daily, Linzess 72 mcg daily, Ultracet 1 tablet q.6 hours p.r.n., Aricept 10 mg daily. ALLERGIES: No known allergies. PAST MEDICAL HISTORY: BPH, superficial bladder cancer, chronic renal failure, dementia, hypertension, gout, hearing loss, osteoarthritis, PAF, malignant melanoma, and status post left great toe amputation. PAST SURGICAL HISTORY: TURP, left nephrectomy, bilateral knee arthroplasty, melanoma of the left arm excision, and left great toe amputation. PHYSICAL EXAMINATION: The patient is awake, alert, and cooperative with exam. He is conversing with us and does not seem in any acute distress. He has pain with palpation of his left elbow, but this is also in a posterior long-arm splint. His hand is significantly swollen, but he does have full range of motion of his fingers. Sensation is intact distally. His cap refill is less than 2 seconds. He also has skin tears to his right arm and has an abrasion to the left side of his face with bruising. He is hard of hearing. There is also a skin tear to his dorsal left hand that I visualized after changing his current splint. This was dressed with xeroform and gauze under the splint. IMAGING: His x-rays reveal a left transverse distal humerus fracture. IMPRESSION: Left transverse distal humerus fracture. PLAN: At this point, Dr. Light discussed treatment options with both the patient and his family. Risks and benefits of surgery now versus splinting fracture and allowing time to heal were discussed. Due to him using a walker and a cane at home and not being very mobile, his family wishes to splint the left arm at this time and we will obtain repeat x-rays in approximately 10 days in office. At that time we will determine if further intervention is needed. The patient was instructed to be completely nonweightbearing on that left upper extremity, and he will not use his walker or a cane for mobilization at home. His daughter states that he will be going home with her, and she plans on using a wheelchair. This was all discussed with both the patient's family and patient. All questions were answered. The patient is being followed by hospitalist, and final disposition will be determined by them. Dictated by KATJA You for Tyrel Light MD cc: MD Isaiah Odom MD MTDD
[2019-03-19] MEDS: AMBIEN PO SCH (21:05)
[2019-03-19] MEDS: KLOR-CON PO SCH ×2 (21:05→22:36)
[2019-03-19] MEDS: GEODON IM PRN (21:46)
[2019-03-19] MEDS: STERILE WATER INJ. INJ PRN (21:46)
--- NOTE | 2019-03-19 21:53 | PROGRESS NOTE ---
DATE: 03/19/2019 SUBJECTIVE: The patient this morning is acutely confused, delirium. He is mumbling and pain is adequately controlled. REVIEW OF SYSTEMS: No focal symptoms. PHYSICAL EXAMINATION: Vital Signs: Temperature is 98 degrees, pulse is 89, blood pressure is 142/84. HEENT: He has a bruise noted in the left upper eyebrow. Neck: Supple. Chest: Bilateral air entry. Heart: Sounds are regular. Abdomen: Belly is soft, nontender. Neurologic: No neurological deficits. INVESTIGATIONS: White cell count 5.0, hematocrit 38, platelets 136,000. Sodium 143, potassium 3.7, chloride 107, BUN 13, creatinine 1.2. Urinalysis is clear. ASSESSMENT AND PLAN: 1. Altered mental status due to acute delirium. 2. Head injury. Follow up on neurovascular checks. 3. Atrial fibrillation. Hold on Xarelto. 4. Left elbow fracture. Awaiting the plan of care as per Dr. Pastor. 5. Continue intravenous fluids. 6. Patient has deconditioning with underlying medical problems. He is not able to ambulate to go home and continue present treatment. We will address the disposition based on his mental confusion, ability to ambulate, and he is high risk for falls, and I am afraid that he needs long-term anticoagulation with underlying atrial fibrillation. We will discuss the plan of care with family and awaiting Dr. Pastor's consult about the left elbow fracture. LEVEL OF DOCUMENTATION: 25 minutes. cc: Isaiah Guzman MD
[2019-03-20] MEDS: STERILE WATER INJ. INJ PRN (01:22)
[2019-03-20] MEDS: GEODON IM PRN (01:22)
[2019-03-20] MEDS: NS 1,000 ML IV SCH ×3 (02:43→18:49)
[2019-03-20] MEDS: OXY IR PO PRN (03:26)
[2019-03-20] MEDS: DUONEB (A & A) INH PRN ×2 (03:41→15:51)
[2019-03-20] MEDS: PRILOSEC PO SCH (07:05)
[2019-03-20] MEDS ORDERED: GEODON IM PRN (08:09)
[2019-03-20] MEDS ORDERED: STERILE WATER INJ. INJ PRN (08:09)
[2019-03-20] MEDS: LINZESS PO SCH (09:00)
[2019-03-20] MEDS: DILAUDID IV PRN ×2 (10:20→17:51)
[2019-03-20] MEDS: NEURONTIN PO SCH (10:31)
[2019-03-20] MEDS: LOPRESSOR PO SCH (10:31)
[2019-03-20] MEDS: LASIX PO SCH (10:31)
[2019-03-20] MEDS: VITAMIN D PO SCH (10:31)
[2019-03-20] MEDS: ARICEPT PO SCH (10:32)
[2019-03-20] MEDS: ZYLOPRIM PO SCH (10:32)
--- NOTE | 2019-03-20 14:29 | Diag Imaging Result Doc PS360 ---
EXAM: WRIST COMPLETE LEFT INDICATION: fall, wrist pain TECHNIQUE: 3 views COMPARISON: None. FINDINGS: Casting material overlies the wrist, which obscures bony details and there are no prior studies available for comparison. Degenerative changes are noted at the first carpometacarpal joint. I can identify no well-defined fracture given the limitations of the study. The surrounding soft tissues are essentially unremarkable as imaged. IMPRESSION: Limited study due to overlying casting material. No definite acute osseous abnormality as imaged. Electronically signed by Maxi Adrian 03/20/2019 2:27 PM
--- NOTE | 2019-03-20 20:46 | PROGRESS NOTE ---
DATE: 03/20/2019 SUBJECTIVE: Last night the patient was in rapid atrial fibrillation. The patient had a cast on the left elbow. He is completely confused. Geodon was given. He has had delirium. Not able to ambulate. He needs some restraints as needed. OBJECTIVE: On exam, temperature is 97 degrees, tachycardic. Vital signs are stable. He had a bruise on the left arm. Distant heart sounds, tachycardic. Belly is soft, nontender. Not all able to move all the extremities. INVESTIGATIONS: None reported. ASSESSMENT AND PLAN: 1. Left elbow fracture, in cast. I appreciate Dr. Light's consult. 2. Delirium. Geodon as needed. 3. Intravenous fluids. 4. We will discuss the plan and disposition. Continue present treatment. 5. Chronic atrial fibrillation, stable. Off of anticoagulation due to head injury and recurrent falls. Level of documentation 25 minutes. cc: Isaiah Guzman MD
[2019-03-21] MEDS: AMBIEN PO SCH ×2 (00:31→21:54)
[2019-03-21] MEDS: NEURONTIN PO SCH ×3 (00:34→21:54)
[2019-03-21] MEDS: KLOR-CON PO SCH ×2 (00:34→21:54)
[2019-03-21] MEDS: NS 1,000 ML IV SCH ×3 (00:34→19:09)
[2019-03-21] MEDS: PRILOSEC PO SCH (06:50)
--- NOTE | 2019-03-21 06:55 | ORTHOPAEDICS PROGRESS NOTE ---
DATE: 03/21/2019 SUBJECTIVE: Mr. Meneses had an overall uneventful night last night. He did have some more confusion, but no restraints had to be used. He is resting comfortably in bed at this time. He is still somewhat confused this morning, but is in no acute distress. OBJECTIVE: He has bruising to his right lower arm and left upper arm. His left arm is in a posterior long arm cast at this time and he is able to move his fingers and his hand is not as swollen as it was yesterday. He is neurovascularly intact to his fingers and his sensation is intact. He is conversing with us this morning. IMPRESSION: Left distal humerus fracture PLAN: We will continue him in his cast and have him follow up in office in 1 week for repeat imaging at that time. His final disposition will be determined by Dr. Guzman. Dictated by KATJA Krishna for Tyrel Light MD cc: MD Isaiah Odom MD MTDD
[2019-03-21] MEDS: ARICEPT PO SCH (09:28)
[2019-03-21] MEDS: ZYLOPRIM PO SCH (09:28)
[2019-03-21] MEDS: LASIX PO SCH (09:28)
[2019-03-21] MEDS: LOPRESSOR PO SCH (09:29)
[2019-03-21] MEDS: VITAMIN D PO SCH (09:29)
[2019-03-21] MEDS: LINZESS PO SCH (09:29)
[2019-03-21] MEDS: OXY IR PO PRN (09:36)
[2019-03-21] MEDS: DUONEB (A & A) INH PRN (11:17)
--- NOTE | 2019-03-21 19:50 | PROGRESS NOTE ---
DATE: 03/21/2019 SUBJECTIVE: Patient is doing a little better, confused, eating well with assistance. I appreciated Dr. Light's consult. OBJECTIVE: Vital Signs: He is running fever at 101 degrees, pulse 72, blood pressure stable, oxygen saturation 93% nasal cannula. HEENT: Had a bruise on the left eyebrow. Chest: Some rhonchi. Heart: Sounds are regular. Abdomen: Belly is soft. Bladder scan 900 mL. INVESTIGATIONS: None reported. ASSESSMENT AND PLAN: 1. Delirium due to bladder retention and head injury. Geodon as needed. 2. Continue intravenous fluids. 3. Left elbow fracture, in the cast, and hold on Xarelto. 4. Bladder retention. Vega catheter in and out. We will check the bladder scan twice a day. 5. Will discuss with the family about the Living Will and the disposition. LEVEL OF DOCUMENTATION: 25 minutes. cc: Isaiah Guzman MD
[2019-03-21] MEDS: DILAUDID IV PRN (23:43)
[2019-03-22] MEDS: NS 1,000 ML IV SCH ×2 (04:34→15:31)
[2019-03-22] MEDS: PRILOSEC PO SCH (06:26)
[2019-03-22] MEDS: OXY IR PO PRN (07:07)
[2019-03-22] MEDS: ARICEPT PO SCH (09:14)
[2019-03-22] MEDS: NEURONTIN PO SCH ×2 (09:14→21:21)
[2019-03-22] MEDS: LASIX PO SCH (09:14)
[2019-03-22] MEDS: LOPRESSOR PO SCH (09:14)
[2019-03-22] MEDS: LINZESS PO SCH (09:14)
[2019-03-22] MEDS: ZYLOPRIM PO SCH (09:14)
[2019-03-22] MEDS: VITAMIN D PO SCH (09:14)
--- NOTE | 2019-03-22 14:15 | Diag Imaging Result Doc PS360 ---
EXAM: CHEST-PORTABLE HISTORY: post procedure TECHNIQUE: Chest single view COMPARISON: 03/18/2019 FINDINGS: The right hemidiaphragm is elevated. The heart is not enlarged. Mild pulmonary edema. Trace pleural fluid. No pneumothoraces. IMPRESSION: Persistent mild pulmonary edema with small effusions Electronically signed by Darnell Shah 03/22/2019 2:13 PM
[2019-03-22] MEDS ORDERED: LASIX IV ONE (15:44)
--- NOTE | 2019-03-22 16:20 | PROGRESS NOTE ---
DATE: 03/22/2019 SUBJECTIVE: The patient is confused, delirium, no change. Still bladder retention, 350 mL straight catheterization in and out. Family was not at bedside. OBJECTIVE: He had a fever of 101. Tachycardic. Vitals are stable. He is still confused. Fluctuation of consciousness. Chest: Bilateral air entry. Distant heart sounds, erratic. Belly is soft, nontender. Left arm, cast was applied. LABORATORY DATA: None reported. ASSESSMENT AND PLAN: 1. Fever of 101. Repeat urine cultures, repeat the labs in the morning and chest x-ray. Watch for the symptoms and signs of infection. Continue IV fluids, bronchodilators. 2. Left elbow fracture, in the cast. Out of the bed with physical science aide. 3. Geodon for p.r.n. delirium. Will continue to monitor. Hold on the Xarelto. Will discuss with the family a living will and further disposition. LEVEL OF DOCUMENTATION: 25 minutes. cc: Isaiah Guzman MD
[2019-03-22] MEDS: AMBIEN PO SCH (21:21)
[2019-03-22] MEDS: KLOR-CON PO SCH (21:21)
[2019-03-22] MEDS: DILAUDID IV PRN (22:16)
[2019-03-23] MEDS: DILAUDID IV PRN ×3 (05:56→17:56)
[2019-03-23] MEDS: NS 1,000 ML IV SCH (05:56)
[2019-03-23] MEDS: PRILOSEC PO SCH ×2 (05:56→11:22)
[2019-03-23 06:34] LABS: HEMATOCRIT 36.7 % (42.0-52.0); HEMOGLOBIN 11.1 g/dL (14.0-18.0); MCH 25.2 PG (27-31); MCHC 30.2 g/dL (33-37); MCV 83.4 FL (81-99); MPV 11.6 FL (7.4-10.4); RBC 4.4 XMIL (4.7-6.1); RDW 16.5 % (11.5-14.5); WBC 11.64 X1000 (4.8-10.8)
[2019-03-23 06:50] LABS: CALCIUM 9.4 mg/dL (8.8-10.2); CREATININE 1.4 mg/dL (0.7-1.2); POTASSIUM 3.9 mmol/L (3.5-5.1)
[2019-03-23] MEDS: LOPRESSOR PO SCH (11:20)
[2019-03-23] MEDS: VITAMIN D PO SCH (11:21)
[2019-03-23] MEDS: ZYLOPRIM PO SCH (11:21)
[2019-03-23] MEDS: NEURONTIN PO SCH ×2 (11:21→20:37)
[2019-03-23] MEDS: ARICEPT PO SCH (11:22)
[2019-03-23] MEDS: LASIX PO SCH (11:22)
[2019-03-23] MEDS: LINZESS PO SCH (11:23)
--- NOTE | 2019-03-23 12:03 | PROGRESS NOTE ---
DATE: 03/23/2019 SUBJECTIVE: The patient has intermittent confusion, delirium, anxious to go home. Fortunately, the daughter was at the bedside as well as his older brother, 91-year-old, at the bedside. He is not emptying the bladder. A Vega was placed. He is running fever and he is in a lot of pain on the left elbow. PHYSICAL EXAMINATION: Temperature is 97.6 degrees, pulse 80, blood pressure 147/83, 95% on 4 L. Weight 233 pounds. He had a bruise on the left eyebrow. Chest is clear. Irregular heart sounds. Belly is soft, nontender. Vega was placed. Left elbow had a cast with a lot of dependent edema, swelling noted, and bruising. INVESTIGATIONS: White cell count 11, hematocrit 36, platelets are 154,000. Sodium 140, potassium 3.9, chloride 103, BUN 24, creatinine 1.4. ASSESSMENT AND PLAN: 1. Left elbow fracture, in a cast. 2. Deconditioning. 3. Delirium due to pain and infection. Started on intravenous Zosyn. 4. Poor nutrition. Discontinue fluids and start on Clinimix. 5. Bladder outlet obstruction, on Vega catheter. 6. Out of the bed with physical therapy. 7. Living will, Do Not Resuscitate. 8. business services vice president for rehab. Family agreed, given the patient is anxious to go home. Discussed all the questions with the family at bedside. We will follow up. LEVEL OF DOCUMENTATION: 35 minutes. cc: Isaiah Guzman MD MTDD
[2019-03-23] MEDS: ZOSYN 3.375 GM in NS 50 ML IV SCH ×2 (12:07→18:00)
[2019-03-23] MEDS: CLINIMIX E 4.25%-5% SOLUTION 1,000 ML IV SCH (12:12)
[2019-03-23] MEDS: OXY IR PO PRN (20:37)
[2019-03-23] MEDS: AMBIEN PO SCH (20:37)
[2019-03-23] MEDS: KLOR-CON PO SCH (20:37)
[2019-03-24] MEDS: ZOSYN 3.375 GM in NS 50 ML IV SCH ×5 (00:12→23:30)
[2019-03-24] MEDS: CLINIMIX E 4.25%-5% SOLUTION 1,000 ML IV SCH ×2 (02:46→11:06)
[2019-03-24] MEDS: PRILOSEC PO SCH (06:17)
[2019-03-24] MEDS: ARICEPT PO SCH (11:00)
[2019-03-24] MEDS: VITAMIN D PO SCH (11:00)
[2019-03-24] MEDS: NEURONTIN PO SCH ×2 (11:00→21:33)
[2019-03-24] MEDS: ZYLOPRIM PO SCH (11:01)
[2019-03-24] MEDS: LASIX PO SCH (11:01)
[2019-03-24] MEDS: LOPRESSOR PO SCH (11:01)
[2019-03-24] MEDS: LINZESS PO SCH (11:02)
[2019-03-24] MEDS ORDERED: ZOSYN ONE (11:07)
[2019-03-24] MEDS: DUONEB (A & A) INH PRN (15:04)
--- NOTE | 2019-03-24 20:57 | PROGRESS NOTE ---
DATE: 03/24/2019 SUBJECTIVE: Patient is still confused. Family decided to go for rehab. Patient is getting sponge bath. Vega was placed. No complaints. PHYSICAL EXAMINATION: Vital Signs: He is tachycardic. Vitals are stable. 93% on room air. HEENT: Within normal limits. Has a bruise on the left eyebrow noted. Chest: Clear. Heart: Irregular heart sounds. Abdomen: Belly is soft, nontender. Good bowel sounds. Vega was placed. Neurologic: No neurological deficits. ASSESSMENT AND PLAN: 1. Left elbow fracture, stable. Continue on cast. 2. Bladder outlet obstruction, on Vega. 3. Living Will; Do Not Resuscitate. 4. Delirium, on Geodon as needed. 5. Fever. Workup so far was negative. Will repeat the labs in the morning. 6. Disposition. Rehab placement once he is medically stable and will follow up. LEVEL OF DOCUMENTATION: 25 minutes. cc: Isaiah Guzman MD
[2019-03-24] MEDS: KLOR-CON PO SCH (21:33)
[2019-03-24] MEDS: OXY IR PO PRN (21:33)
[2019-03-25] MEDS: AMBIEN PO SCH (02:56)
[2019-03-25] MEDS: ZOSYN 3.375 GM in NS 50 ML IV SCH ×3 (06:08→23:51)
[2019-03-25] MEDS: CLINIMIX E 4.25%-5% SOLUTION 1,000 ML IV SCH ×2 (06:08→12:13)
[2019-03-25] MEDS: OXY IR PO PRN (06:27)
[2019-03-25] MEDS: PRILOSEC PO SCH (06:27)
[2019-03-25 06:56] LABS: BASO# 0.01 X1000 (0.0-0.2); BASO% 0.1 % (0.0-0.8); HEMOGLOBIN 11.1 g/dL (14.0-18.0); IMM GRAN# 0.17 X1000 (0.0-0.04); IMM GRAN% 1.4 % (0.0-0.5); LYMPH# 1.12 X1000 (1.2-3.4); LYMPH% 9.4 % (20.5-51.1); MCH 24.4 PG (27-31); MCHC 29.2 g/dL (33-37); MCV 83.5 FL (81-99); MONO# 1.64 X1000 (0.11-0.59); MONO% 13.8 % (1.7-9.3); MPV 12.8 FL (7.4-10.4); NEUT# 8.95 X1000 (1.4-6.5); NEUT% 75.3 % (42.2-75.2); PLT 219 X1000 (130-400); RBC 4.55 XMIL (4.7-6.1); RDW 16.4 % (11.5-14.5); WBC 11.89 X1000 (4.8-10.8)
[2019-03-25 07:26] LABS: LYMPHS 12 % (21-51); MONO 2 % (1-9); SEGS 84 % (42-75)
[2019-03-25 07:31] LABS: CALCIUM 9.4 mg/dL (8.8-10.2); CREATININE 1.4 mg/dL (0.7-1.2); POTASSIUM 4.4 mmol/L (3.5-5.1)
--- NOTE | 2019-03-25 09:56 | Diag Imaging Result Doc PS360 ---
EXAM: CHEST-PORTABLE INDICATION: non productive cough TECHNIQUE: One view COMPARISON: 03/22/2019 FINDINGS: There is mild linear atelectasis at the right lung base. The central vasculature appears somewhat prominent and there is mild interstitial thickening bilaterally suggesting pulmonary venous congestion and mild interstitial edema. There is no discrete pleural fluid collection or pneumothorax. Cardiac silhouette is somewhat prominent but stable. IMPRESSION: Suggestion of mild interstitial edema and pulmonary venous congestion with right basilar atelectasis. Electronically signed by Maxi Adrian 03/25/2019 9:54 AM
[2019-03-25] MEDS: DUONEB (A & A) INH PRN (11:28)
[2019-03-25] MEDS: VITAMIN D PO SCH (12:10)
[2019-03-25] MEDS: LASIX PO SCH (12:10)
[2019-03-25] MEDS: LOPRESSOR PO SCH (12:10)
[2019-03-25] MEDS: LINZESS PO SCH (12:10)
[2019-03-25] MEDS: NEURONTIN PO SCH (12:10)
[2019-03-25] MEDS: ZYLOPRIM PO SCH (12:11)
[2019-03-25] MEDS: ARICEPT PO SCH (12:11)
[2019-03-25] MEDS ORDERED: ZOSYN ONE (16:22)
--- NOTE | 2019-03-25 23:49 | PROGRESS NOTE ---
DATE: 03/25/2019 SUBJECTIVE: The patient is not eating well. He is obtunded and we are afraid of aspiration. His delirium is in and out with all this pain. OBJECTIVE: Temperature is 98.7 degrees, pulse is 108, blood pressure is stable, 96%. He is mumbling. Chest: He has rhonchi. Irregular heart sounds. Belly is soft. Vega was placed. LABORATORY DATA: White cell count 11, hematocrit 38, platelets 219,000. Sodium 140, potassium 4.4, BUN 39, creatinine 1.4. ASSESSMENT AND PLAN: 1. Delirium. 2. Left supracondylar fracture of the humerus. 3. Bladder outlet obstruction. 4. Head injury, dementia. Decrease intravenous Clinimix. Lasix was given. 5. Waiting for placement. 6. Living Will: Do Not Resuscitate/Allow Natural . 7. We will use Dulcolax and also Speech Therapy evaluation tomorrow. He is not medically stable to be transferred out while they continue to pursue for shelter placement. Level of documentation 25 minutes. cc: Isaiah Guzman MD
[2019-03-25] MEDS: DILAUDID IV PRN (23:51)
[2019-03-25] MEDS: KLOR-CON PO SCH (23:51)
[2019-03-26] MEDS: AMBIEN PO SCH ×2 (02:24→22:30)
[2019-03-26] MEDS: NEURONTIN PO SCH ×3 (02:25→22:31)
[2019-03-26] MEDS: ZOSYN 3.375 GM in NS 50 ML IV SCH ×4 (06:17→22:31)
[2019-03-26] MEDS: CLINIMIX E 4.25%-5% SOLUTION 1,000 ML IV SCH ×2 (06:17→14:27)
[2019-03-26] MEDS: PRILOSEC PO SCH (08:20)
[2019-03-26] MEDS: OXY IR PO PRN (08:20)
[2019-03-26] MEDS: LINZESS PO SCH (09:20)
[2019-03-26] MEDS: LASIX PO SCH (09:20)
[2019-03-26] MEDS: ZYLOPRIM PO SCH (09:20)
[2019-03-26] MEDS: LOPRESSOR PO SCH (09:20)
[2019-03-26] MEDS: ARICEPT PO SCH (09:20)
[2019-03-26] MEDS: VITAMIN D PO SCH (09:20)
[2019-03-26 09:45] LABS: URINE SOURCE CLEAN CATCH
[2019-03-26 09:53] LABS: BILIRUBIN URINE SMALL (NEGATIVE); BLOOD URINE MODERATE (NEGATIVE); COLOR YELLOW; GLUCOSE URINE NEGATIVE (NEGATIVE); KETONE URINE NEGATIVE (NEGATIVE); LEUKOCYTES URINE MODERATE (NEGATIVE); NITRITE URINE NEGATIVE (NEGATIVE); PROTEIN URINE 100 mg/dL (NEGATIVE); SP GRAVITY URINE 1.028; TURBIDITY URINE CLEAR (CLEAR); UR EPITHELIAL CELLS <10 /HPF (<10); URINE BACTERIA NEGATIVE /HPF; URINE RBC TNTC /HPF (<10); UROBILINOGEN URINE 6 mg/dL (NORMAL)
[2019-03-26] MEDS ORDERED: DILAUDID IV PRN (15:08)
[2019-03-26] MEDS: DUONEB (A & A) INH PRN ×2 (15:46→23:31)
--- NOTE | 2019-03-26 21:22 | PROGRESS NOTE ---
DATE: 03/26/2019 SUBJECTIVE: The patient is still confused, delirious, in a lot of pain. Speech therapy evaluation is high risk for aspiration. PHYSICAL EXAM: Vital Signs: He has a low-grade fever, tachycardic. Vitals are stable. 3 L nasal cannula, 94%. HEENT: Within normal limits. Chest: Rhonchi. Cardiovascular: Heart sounds are regular. Abdomen: Belly is soft, nontender. No obvious deficits. INVESTIGATIONS: CBC: White cell count 11, hematocrit 38, platelets 219. Sodium 140, BUN 39, creatinine 1.4. Urine cultures are pending. ASSESSMENT AND PLAN: 1. Delirium, fluctuation of memory loss. 2. Bladder outlet obstruction, on Vega. 3. High risk for aspiration. 4. Left supracondylar fracture. 5. Continue IV Clinimix. 6. Continue IV antibiotics and Geodon for agitation. Living will and DO NOT RESUSCITATE. If the patient does not get better, his confusion, we will discuss a palliative care consult. 7. Also, social service is involved to get a bed in [facility], and will follow up. LEVEL OF DOCUMENTATION: 25 minutes. cc: Isaiah Guzman MD
[2019-03-26] MEDS: DULCOLAX PR SCH (22:25)
[2019-03-26] MEDS: KLOR-CON PO SCH (22:30)
[2019-03-27] MEDS: CLINIMIX E 4.25%-5% SOLUTION 1,000 ML IV SCH ×2 (02:04→23:40)
[2019-03-27] MEDS: PRILOSEC PO SCH (06:07)
[2019-03-27] MEDS: ZOSYN 3.375 GM in NS 50 ML IV SCH ×4 (06:07→23:42)
--- NOTE | 2019-03-27 09:34 | Diag Imaging Result Doc PS360 ---
ELBOW 2 VIEWS LEFT - 03/27/2019 INDICATION: Fracture TECHNIQUE: COMPARISON: 03/18/2019 FINDINGS: There has been some remodeling at the transverse distal humerus fracture through the epicondyles. There is been bone resorption here. There is also a small amount of surrounding new bone formation. However there is no bony bridging. Alignment is anatomic. No displacement. No dislocation. IMPRESSION: Slight healing of the distal humerus fracture. Electronically signed by Barrie Magana 03/27/2019 9:31 AM
[2019-03-27] MEDS: LOPRESSOR PO SCH (17:51)
[2019-03-27] MEDS: LASIX PO SCH (17:51)
[2019-03-27] MEDS: LINZESS PO SCH (17:51)
[2019-03-27] MEDS: VITAMIN D PO SCH (17:52)
[2019-03-27] MEDS: ARICEPT PO SCH (17:52)
[2019-03-27] MEDS: NEURONTIN PO SCH ×2 (17:52→23:41)
[2019-03-27] MEDS: ZYLOPRIM PO SCH (17:52)
--- NOTE | 2019-03-27 22:04 | PROGRESS NOTE ---
DATE: 03/27/2019 SUBJECTIVE: The patient is not doing very well. He is completely confused, high risk for aspiration. PHYSICAL EXAMINATION: Temperature is 98 degrees, vitals are stable. Tachycardic and mumbling, agitated, a lot of pain. Chest is clear. Irregular heart sounds. Belly is soft, nontender. No obvious deficits. INVESTIGATIONS: None reported. ASSESSMENT AND PLAN: 1. Delirium due to multifactorial. 2. High risk for aspiration. 3. Out of the bed with Physical Therapy not feasible. 4. Control the pain. 5. Left supracondylar fracture on the cast. 6. Continue IV Clinimix and Geodon. 7. He is on IV Zosyn. 8. Living will: DNR. 9. [facility]. We will discuss with the family about the transfer and physical therapy and will follow up. LEVEL OF DOCUMENTATION: 25 minutes. cc: Isaiah Guzman MD
[2019-03-27] MEDS: KLOR-CON PO SCH (23:41)
[2019-03-27] MEDS: AMBIEN PO SCH (23:50)
[2019-03-27] MEDS: DULCOLAX PR SCH (23:51)
[2019-03-28] MEDS ORDERED: CALMOSEPTINE OINTMENT TOP PRN (03:39)
[2019-03-28] MEDS: ZOSYN 3.375 GM in NS 50 ML IV SCH ×4 (05:06→22:04)
[2019-03-28] MEDS: PRILOSEC PO SCH (06:50)
[2019-03-28] MEDS: DUONEB (A & A) INH PRN ×3 (10:29→22:54)
[2019-03-28] MEDS: ZYLOPRIM PO SCH (10:43)
[2019-03-28] MEDS: VITAMIN D PO SCH (10:43)
[2019-03-28] MEDS: ARICEPT PO SCH (10:45)
[2019-03-28] MEDS: NEURONTIN PO SCH ×2 (10:45→21:57)
[2019-03-28] MEDS: LOPRESSOR PO SCH (10:45)
[2019-03-28] MEDS: LINZESS PO SCH (10:46)
[2019-03-28] MEDS: LASIX PO SCH (10:46)
[2019-03-28] MEDS: OXY IR PO PRN (18:43)
--- NOTE | 2019-03-28 20:06 | PROGRESS NOTE ---
DATE: 03/28/2019 SUBJECTIVE: Patient is in and out of confusion eating with assistance and no significant change. REVIEW OF SYSTEMS: Low-grade fever, tachycardic. Blood pressure is 151/73. Mostly bedridden. High maintenance. Not able to do any activities of daily living. PHYSICAL EXAMINATION: No change. INVESTIGATIONS: None. ASSESSMENT: 1. Status post left elbow fracture, on cast. 2. Delirium. 3. Deconditioning. 4. Decreased performance status. 5. High risk for aspiration and as well as deep venous thrombosis. PLAN OF CARE: Continue present treatment, intravenous Clinimix, intravenous antibiotics, assistance with nutrition. I spoke to the daughter who has the power of estate attorney. Agreed upon Living Will/ Do Not Resuscitate. [facility]. At this time, the patient is not ready to go for rehab. He will be right back if he is not taking the pills or food by mouth. Palliative consult was initiated. If things will not improve in next 48 hours, continues to be bedridden, consider hospice care, and will follow up over the weekend. LEVEL OF DOCUMENTATION: 25 minutes. cc: Isaiah Guzman MD
[2019-03-28] MEDS: KLOR-CON PO SCH (21:56)
[2019-03-28] MEDS: AMBIEN PO SCH (21:57)
[2019-03-28] MEDS: CLINIMIX E 4.25%-5% SOLUTION 1,000 ML IV SCH (22:05)
[2019-03-29] MEDS: DULCOLAX PR SCH ×2 (01:30→20:05)
[2019-03-29] MEDS: ZOSYN 3.375 GM in NS 50 ML IV SCH ×5 (04:49→22:00)
[2019-03-29] MEDS: OXY IR PO PRN ×2 (04:51→18:05)
[2019-03-29] MEDS: PRILOSEC PO SCH (06:01)
--- NOTE | 2019-03-29 09:00 | PROGRESS NOTE ---
DATE: 03/29/2019 SUBJECTIVE: The patient is very confused. I awaken him. He was sleeping. He mumbles and does not carry on a conversation. He is incoherent. He has been this way for some time. OBJECTIVE: Vital Signs: Blood pressure 149/83, respirations 20, pulse 119. He is in atrial fibrillation with rapid ventricular response. Oxygen saturations 95%. Temp is 99.1 degrees Fahrenheit. HEENT: Normocephalic. He does have bruising around his face. He has had a fall. Lungs: Sound clear to auscultation and percussion without rhonchi, rales, or wheezes. Heart: Regular rate and rhythm without murmurs, gallops, friction rubs. Abdomen: Soft. Active bowel sounds. No organomegaly or tenderness. Extremities: The patient left elbow was fractured and this is a wrapped dressing or splint. ASSESSMENT: 1. Fractured left elbow after a fall. 2. Altered mental status. PLAN: Continue support. cc: MD Isaiah Selby Jr, MD
[2019-03-29] MEDS: LOPRESSOR PO SCH (09:29)
[2019-03-29] MEDS: VITAMIN D PO SCH (09:29)
[2019-03-29] MEDS: LASIX PO SCH (09:29)
[2019-03-29] MEDS: ARICEPT PO SCH (09:29)
[2019-03-29] MEDS: ZYLOPRIM PO SCH (09:29)
[2019-03-29] MEDS: LINZESS PO SCH (09:29)
[2019-03-29] MEDS: NEURONTIN PO SCH ×2 (09:30→20:05)
[2019-03-29] MEDS: DUONEB (A & A) INH PRN ×3 (10:36→22:39)
[2019-03-29] MEDS: CLINIMIX E 4.25%-5% SOLUTION 1,000 ML IV SCH (12:19)
[2019-03-29] MEDS: AMBIEN PO SCH (20:05)
[2019-03-29] MEDS: KLOR-CON PO SCH (20:05)
[2019-03-30] MEDS: ZOSYN 3.375 GM in NS 50 ML IV SCH ×4 (04:32→22:50)
[2019-03-30] MEDS: PRILOSEC PO SCH (06:00)
[2019-03-30] MEDS: CLINIMIX E 4.25%-5% SOLUTION 1,000 ML IV SCH (08:20)
[2019-03-30] MEDS: LOPRESSOR PO SCH (08:24)
[2019-03-30] MEDS: LINZESS PO SCH (08:25)
[2019-03-30] MEDS: VITAMIN D PO SCH (08:25)
[2019-03-30] MEDS: ZYLOPRIM PO SCH (08:25)
[2019-03-30] MEDS: ARICEPT PO SCH (08:25)
[2019-03-30] MEDS: LASIX PO SCH (08:25)
[2019-03-30] MEDS: NEURONTIN PO SCH ×2 (08:25→22:49)
[2019-03-30] MEDS: ULTRACET 37.5MG/325MG PO PRN (08:41)
--- NOTE | 2019-03-30 11:00 | PROGRESS NOTE ---
DATE: 03/30/2019 SUBJECTIVE: The patient is unresponsive. He has been confused and with delirium. He was given tramadol earlier today. It seems that it is too strong for him. It is interesting, as I called the nurse to the bedside, as the patient had been confused but responsive yesterday. She told me that what had happened is there had been family members in the room who told her that pain medicines knock him out where he will not wake up. But another family member, a brother, who said because he is the oldest, that he is in charge and that he did not think that his brother was getting pain relief. He insisted on the patient getting something. And the nurse decided that since it was ordered to give him some tramadol which usually is fairly mild for pain relief, but apparently for this patient is too much. According the nurse, the patient had not really seemed to show that much pain, but this other family member, the brother, apparently was very intense with several of the nurses, insisting that his brother have something for pain. OBJECTIVE: Vital signs: Blood pressure is 138/95, respirations 16, pulse 80, temp is up at 100.9 degrees. General: If the patient has an infection, that might also contribute to his nonresponsiveness. But apparently when the nurse gave him the tramadol, he was awake, and he took it orally. HEENT: I really could evaluate very well. I lifted his eyelids, he still did not respond. I did a deep sternal rub, and he did not respond. Lungs: Sound clear to auscultation. Heart: Regular rate and rhythm without murmurs, gallops, friction rubs. Abdomen: Soft. Active bowel sounds. No organomegaly or tenderness. Neurological: As above. He is unresponsive at this time. I have been told apparently through the nurse, through other family members, that this is how he acts when he has had pain medicines. DIAGNOSTIC DATA: White count has gone up to 11,890, but that was actually done on 03/25/2019. He has not had recent lab work. He has had a low-grade fever all along, and it is felt that he might be going to hospice. Apparently there is some disagreement with family members about how much care and how aggressive to be with this patient. PLAN: Will get some lab work just to see where we are. The patient is on antibiotics already. cc: MD Isaiah Selby Jr, MD
[2019-03-30 11:21] LABS: HEMATOCRIT 44.2 % (42.0-52.0); HEMOGLOBIN 12.5 g/dL (14.0-18.0); MCH 24.7 PG (27-31); MCHC 28.3 g/dL (33-37); MCV 87.2 FL (81-99); MPV 12.7 FL (7.4-10.4); RBC 5.07 XMIL (4.7-6.1); RDW 17.4 % (11.5-14.5); WBC 15.7 X1000 (4.8-10.8)
[2019-03-30] MEDS ORDERED: OFIRMEV 1000 MG/ISOTONIC SOLN 1,000 MG/100 ML BOTTLE IV PRN (13:01)
[2019-03-30] MEDS: DUONEB (A & A) INH PRN (15:47)
[2019-03-30] MEDS ORDERED: VANCOMYCIN IV PER PHARMACY MISC SCH (16:45)
[2019-03-30 16:52] LABS: URINE SOURCE CATH
[2019-03-30 16:55] LABS: BILIRUBIN URINE SMALL (NEGATIVE); BLOOD URINE MODERATE (NEGATIVE); COLOR YELLOW; GLUCOSE URINE NEGATIVE (NEGATIVE); KETONE URINE NEGATIVE (NEGATIVE); LEUKOCYTES URINE NEGATIVE (NEGATIVE); NITRITE URINE NEGATIVE (NEGATIVE); PROTEIN URINE 100 mg/dL (NEGATIVE); SP GRAVITY URINE 1.027; TURBIDITY URINE HAZY (CLEAR); UROBILINOGEN URINE 6 mg/dL (NORMAL)
[2019-03-30 16:56] LABS: UR EPITHELIAL CELLS <10 /HPF (<10); URINE BACTERIA NEGATIVE /HPF; URINE RBC TNTC /HPF (<10); URINE WBC 20-40 /HPF (<10)
[2019-03-30] MEDS ORDERED: VANCOMYCIN 2,000 MG in NS 500 ML IV SCH (17:00)
--- NOTE | 2019-03-30 17:10 | Diag Imaging Result Doc PS360 ---
EXAM: CHEST-PORTABLE 03/30/2019 HISTORY: wheezing TECHNIQUE: AP portable upright at 1657 COMMENT: The heart is enlarged. The pulmonary vascularity is increased. There is increased interstitial markings and apparent atelectasis over the hemidiaphragms. IMPRESSION: Cardiomegaly pulmonary edema and bibasilar atelectasis. Electronically signed by Azael Lopez 03/30/2019 5:08 PM
[2019-03-30 20:30] VITALS: BP 63/37
[2019-03-30] MEDS ORDERED: NS 1,000 ML IV ONE (20:45)
[2019-03-30] MEDS ORDERED: NS 1,000 ML IV SCH (20:45)
[2019-03-30] MEDS: AMBIEN PO SCH (22:49)
[2019-03-30] MEDS: DULCOLAX PR SCH (22:49)
[2019-03-30] MEDS: KLOR-CON PO SCH (22:50)
--- NOTE | 2019-03-31 22:47 | DISCHARGE SUMMARY ---
ADMISSION DATE: 03/18/2019 DISCHARGE DATE: 03/30/2019 FINAL DIAGNOSIS: Acute cardiopulmonary arrest due to aspiration pneumonia with multiorgan failure. SECONDARY DIAGNOSIS: 1. Left supracondylar fracture. 2. Superficial bladder cancer. 3. Chronic renal failure. 4. Dementia. 5. Hypertension. 6. Gout. 7. Hearing loss. 8. Osteoarthritis of both knees. 9. Paroxysmal atrial fibrillation. 10. 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 11. Status post left nephrectomy. 12. Benign prostatic hyperplasia. CONSULTATIONS: 1. Tyrel Light MD 2. Palliative Care. PROCEDURES: Casting of the left elbow fracture. BRIEF HISTORY: Please see the H and P that was done on 03/18/2019. In brief, he is an 89-year- old white gentleman with above problems, had a fall at home, injury to the head and the left elbow. He was admitted on 03/18/2019. He had a workup done in the ER. CT head was negative. CT neck was negative. He had a small bruise on the left eyebrow. He had a nondisplaced supracondylar fracture of the left humerus. HOSPITAL COURSE: The patient was seen by Dr. Light. Options were given to the family. They want to put a cast rather than surgery. The patient has excruciating pain, and the hospital course was complicated after the cast as follows: 1. Delirium due to mental confusion with pain requiring Geodon. 2. In light of head injury, we stopped the Xarelto. 3. Dehydration, and the patient was started on IV fluids and IV Clinimix. 4. Bladder retention. Vega was placed. 5. Speech therapy evaluation. Patient is high risk for aspiration. Not able to take the medicines as well as food. 6. Living will was discussed with a DNR. The daughter has the power of [place] attorney. 7. He also was high risk for aspiration, running fever and started on IV antibiotics with Zosyn. Initial plan was going to rehab at [facility], and a bed was available. I spoke to the daughter on Sunday afternoon that he will come right back. We will wait for next 48 hours. If things will not improve, consider hospice care. In the meantime on 03/30/2019, patient developed high fever, low blood pressure, not able to improve with IV fluids, and patient slowly deteriorated, went to asystole and peacefully on 03/30/2019 at 205. Family was notified. The cause of the was due to cardiopulmonary arrest due to possible aspiration pneumonia and leading into multiorgan failure with comorbid conditions as above. cc: Isaiah Guzman MD
== END 2019-03-30 20:45 | disposition expired | DRG 562 ==
LOC: SUPCPDRO → ED 00:28 → 4N 08:47
PROVIDERS: ADMIT Internal Medicine; ATTEND Internal Medicine